=== PATIENT | female | born 1955 | race Caucasian/White ===

== ENCOUNTER → 2016-10-02 | Outpatient (CLI) | payer OTHER ==
--- NOTE | 2016-10-05 09:25 | MM ---
Reason for exam: screening (asymptomatic). Last mammogram was performed 2 years and 3 months ago. History: Patient is postmenopausal and is nulliparous. Family history of breast cancer in maternal grandmother at age 60. Took hormonal contraceptives for 25 years beginning at age 19. Took estrogen for 10 years beginning at age 47. Took progesterone for 10 years beginning at age 47. Physical Findings: A clinical breast exam by your physician is recommended on an annual basis and results should be correlated with mammographic findings. MG Screening Mammo w CAD Bilateral CC and MLO view(s) were taken. Prior study comparison: July 09, 2014, bilateral MG diagnostic mammo w CAD [facility]. July 13, 2011, [facility] DIGITAL LEFT BREAST MAMMOGRAM w/CAD. The breast tissue is heterogeneously dense. This may lower the sensitivity of mammography. There is no discrete abnormality. ASSESSMENT: Negative, BI-RAD 1 RECOMMENDATION: Routine screening mammogram of both breasts in 1 year.
== END | disposition home or self-care (01) ==
LOC: RADMAMWWP 08:06
PROVIDERS: ATTEND Obstetrics & Gynecology
DX: Z12.31 Encounter for screening mammogram for malignant neoplasm of breast (principal); Z80.3 Family history of malignant neoplasm of breast

== ENCOUNTER → 2019-02-14 | Outpatient (CLI) | payer OTHER, MEDICARE ==
--- NOTE | 2019-02-16 10:20 | MM ---
Reason for exam: screening (asymptomatic). Last mammogram was performed 2 years and 4 months ago. History: Patient is postmenopausal and is nulliparous. Family history of breast cancer in maternal grandmother at age 60. Took hormonal contraceptives for 25 years beginning at age 19. Took estrogen for 10 years beginning at age 47. Took progesterone for 10 years beginning at age 47. Physical Findings: A clinical breast exam by your physician is recommended on an annual basis and results should be correlated with mammographic findings. MG Screening Mammo w CAD Bilateral CC and MLO view(s) were taken. Prior study comparison: October 02, 2016, bilateral MG screening mammo w CAD. July 09, 2014, bilateral MG diagnostic mammo w CAD [facility]. The breast tissue is extremely dense which could obscure a lesion on mammography. No significant changes when compared with prior studies. ASSESSMENT: Benign, BI-RAD 2 RECOMMENDATION: Routine screening mammogram of both breasts in 1 year.
== END | disposition home or self-care (01) ==
LOC: RADMAMWWP 08:38
PROVIDERS: ATTEND Family Medicine
DX: Z12.31 Encounter for screening mammogram for malignant neoplasm of breast (principal)
CPT/HCPCS: 77067

== ENCOUNTER → 2019-10-09 | Outpatient (CLI) | payer MEDICARE, BC ==
--- NOTE | 2019-10-09 15:53 | BD ---
EXAMINATION TYPE: Axial Bone Density DATE OF EXAM: 10/09/2019 COMPARISON: NONE CLINICAL HISTORY: Height: 64 Weight: 138.6 FRAX RISK QUESTIONS: Alcohol (3 or more units per day): yes Family History (Parent hip fracture): no Glucocorticoids (More than 3mos): no (Ex: prednisone, prednisolone, methylprednisolone, dexamethasone, and hydrocortisone). History of Fracture in Adulthood: yes Secondary Osteoporosis: 1. Type 1 Diabetes: no 2. Hyperthyroidism: no 3. Menopause before 45: no 4. Malnutrition: no 5. Chronic liver disease: no Rheumatoid Arthritis: yes Current Tobacco Use: no RISK FACTORS HISTORY OF: Family History of Osteoporosis: no Active: yes Diet low in dairy products/other sources of calcium: no Postmenopausal woman: round age 49 Take estrogen and/or progesterone medications: yes How lon year Lost more than 2 inches in height since high school: no MEDICATIONS: hormones, hydrochlorothiazide Additional History: EXAM MEASUREMENTS: Bone mineral densitometry was performed using the [employer] System. Bone mineral density as measured about the Lumbar spine is: ----- L1-L4(G/cm2): 1.335 T Score Values are as follows: ----- L2: 0.7 ----- L3: 2.0 ----- L4: 2.1 ----- L1-L4: 1.3 Bone mineral density : baseline Bone mineral density about the R hip (g/cm2): 0.891 Bone mineral density about the L hip (g/cm2): 0.883 T Score values are as follows: -----R Neck: -1.1 -----L Neck: -1.1 -----R Total: -0.4 -----L Total: -0.3 Bone mineral density : baseline IMPRESSION: No evidence for osteoporosis or osteopenia. NOTE: T-SCORE=SD OF THE YOUNG ADULT MEAN.
== END | disposition home or self-care (01) ==
LOC: RADBDWWP 14:01
PROVIDERS: ATTEND Family Medicine
DX: Z78.0 Asymptomatic menopausal state (principal)
CPT/HCPCS: 77080

== ENCOUNTER → 2020-10-07 | Outpatient (CLI) | payer MEDICARE, BC ==
--- NOTE | 2020-10-08 14:32 | MM ---
Reason for exam: screening (asymptomatic). Last mammogram was performed 1 year and 8 months ago. History: Patient is postmenopausal and is nulliparous. Family history of breast cancer in maternal grandmother at age 60. Took hormonal contraceptives for 25 years beginning at age 19. Took estrogen for 10 years beginning at age 47. Took progesterone for 10 years beginning at age 47. Physical Findings: A clinical breast exam by your physician is recommended on an annual basis and results should be correlated with mammographic findings. MG 3D Screening Mammo W/Cad Bilateral CC and MLO view(s) were taken. Prior study comparison: February 14, 2019, bilateral MG screening mammo w CAD. October 02, 2016, bilateral MG screening mammo w CAD. The breast tissue is extremely dense which could obscure a lesion on mammography. No significant changes when compared with prior studies. ASSESSMENT: Benign, BI-RAD 2 RECOMMENDATION: Routine screening mammogram of both breasts in 1 year.
== END | disposition home or self-care (01) ==
LOC: RADMAMWWP 09:35
PROVIDERS: ATTEND Obstetrics & Gynecology
DX: Z12.31 Encounter for screening mammogram for malignant neoplasm of breast (principal); Z80.3 Family history of malignant neoplasm of breast
CPT/HCPCS: 77063; 77067

== ENCOUNTER → 2021-11-28 | Outpatient (CLI) | payer MEDICARE, BC ==
--- NOTE | 2021-12-01 11:04 | MM ---
Reason for exam: screening (asymptomatic). Last mammogram was performed 1 year and 2 months ago. History: Patient is postmenopausal and is nulliparous. Family history of breast cancer in maternal grandmother at age 60. Took hormonal contraceptives for 25 years beginning at age 19. Took estrogen for 10 years beginning at age 47. Took progesterone for 10 years beginning at age 47. Physical Findings: A clinical breast exam by your physician is recommended on an annual basis and results should be correlated with mammographic findings. MG 3D Screening Mammo W/Cad Bilateral CC and MLO view(s) were taken. Prior study comparison: October 07, 2020, bilateral MG 3d screening mammo w/cad. February 14, 2019, bilateral MG screening mammo w CAD. The breast tissue is heterogeneously dense. This may lower the sensitivity of mammography. There is no discrete abnormality. No significant changes when compared with prior studies. ASSESSMENT: Negative, BI-RAD 1 RECOMMENDATION: Routine screening mammogram of both breasts in 1 year.
== END | disposition home or self-care (01) ==
LOC: RADMAMWWP 09:14
PROVIDERS: ATTEND Obstetrics & Gynecology
DX: Z12.31 Encounter for screening mammogram for malignant neoplasm of breast (principal); Z80.3 Family history of malignant neoplasm of breast; Z78.0 Asymptomatic menopausal state
CPT/HCPCS: 77063; 77067

== ENCOUNTER → 2022-12-03 | Outpatient (CLI) | payer MEDICARE, BC ==
--- NOTE | 2022-12-03 12:10 | MM ---
Reason for Exam: Screening (asymptomatic). Last screening mammogram was performed 12 month(s) ago. Patient History: Menarche at age 12. Patient has no children. Left ovary removed at age 21. Postmenopausal. Estrogen for 10 years from age 47 until age 57. Progesterone for 10 years from age 47 until age 57. Hormonal Contraceptives for 25 years from age 19 until age 44. Maternal grandmother had breast cancer, age 60. Risk Values: Madina 5 year model risk: 1.9%. NCI Lifetime model risk: 6.2%. Prior Study Comparison: 02/14/2019 Bilateral Screening Mammogram, [facility]. 10/07/2020 Bilateral Screening Mammogram, [facility]. 11/28/2021 Bilateral Screening Mammogram, [facility]. Tissue Density: The breast tissue is heterogeneously dense. This may lower the sensitivity of mammography. Findings: Analyzed By CAD. There is no suspicious group of microcalcifications or new suspicious mass in either breast. Overall Assessment: Negative, BI-RAD 1 Management: Screening Mammogram of both breasts in 1 year. A clinical breast exam by your physician is recommended on an annual basis and results should be correlated with mammographic findings. [facility] will attempt to contact patient to return for supplemental views and ultrasound if indicated. Electronically signed and approved by: Antonio Encarnacion DO
--- NOTE | 2022-12-03 14:37 | BD ---
EXAMINATION TYPE: Axial Bone Density DATE OF EXAM: 12/03/2022 CLINICAL HISTORY: 67 years old Female. ICD-10 CODE: M89.9 DISORDER OF BONE Height: 64 Weight: 141.8 FRAX RISK QUESTIONS: Alcohol (3 or more units per day): no Family History (Parent hip fracture): no Glucocorticoids (More than 3mos): no History of Fracture in Adulthood: toe Secondary Osteoporosis: 1. Type 1 Diabetes: no 2. Hyperthyroidism: no 3. Menopause before 45: no 4. Malnutrition: no 5. Chronic liver disease: no Rheumatoid Arthritis: yes Current Tobacco Use: no RISK FACTORS HISTORY OF: Hip Fracture (Right/Left): no Spine Fracture: no History of Wrist Fracture: no Surgery to Spine/Hip(right/left)/Wrist (right/left): no Family History of Osteoporosis: no Active: no Diet low in dairy products/other sources of calcium: no Postmenopausal woman: yes Take estrogen and/or progesterone medications: testosterone How long: past 3 years Lost more than 2 inches in height since high school: no Frequent falls: no Poor Health: no Hyperparathyroidism: no Adrenal Insufficiency: no MEDICATIONS: Prednisone or other steroids: no Thyroid Medications: no Osteoporosis Medications: no Additional Medications: BP meds, multi vit., fish oil, biotin Additional History: EXAM MEASUREMENTS: Bone mineral densitometry was performed using the [employer] System. Bone mineral density as measured about the Lumbar spine is: ----- L1-L4(G/cm2): 1.263 T Score Values are as follows: ----- L1: -0.1 ----- L2: 0.2 ----- L3: 1.3 ----- L4: 1.0 ----- L1-L4: 0.7 Z Score Values are as follows: ----- L1: 1.5 ----- L2: 1.9 ----- L3: 3.0 ----- L4: 2.7 ----- L1-L4: 2.4 Bone mineral density has: Decreased -9.1% since the study of 10/09/2019 Bone mineral density about the R hip (g/cm2): 0.933 Bone mineral density about the L hip (g/cm2): 0.940 T Score values are as follows: -----R Neck: -0.3 -----L Neck: -1.1 -----R Total: -0.6 -----L Total: -0.5 Z Score values are as follows: -----R Neck: 1.3 -----L Neck: 0.5 -----R Total: 0.8 -----L Total: 0.9 Bone mineral density had Decreased -2.7% since the study of 10/09/2019 FRAX%s: The graph provided illustrates a 11.4% chance for a major osteoporotic fx and a 1.3% chance f or the hip probability for a fx in 10 years time. IMPRESSION: Osteopenia (T Score between -2.5 and -1). There is slightly increased risk of fracture and the patient may be considered for treatment. Re-Screen 2-5 years. NOTE: T-SCORE=SD OF THE YOUNG ADULT MEAN.
== END | disposition home or self-care (01) ==
LOC: RADMAMWWP 10:14
PROVIDERS: ATTEND Family Medicine
DX: Z12.31 Encounter for screening mammogram for malignant neoplasm of breast (principal); M85.89 Other specified disorders of bone density and structure, multiple sites; Z78.0 Asymptomatic menopausal state; Z80.3 Family history of malignant neoplasm of breast
CPT/HCPCS: 77063; 77067; 77080

== ENCOUNTER → 2024-12-28 | Outpatient (CLI) | payer MEDICARE, BC ==
--- NOTE | 2024-12-28 13:10 | BD ---
EXAMINATION TYPE: Axial Bone Density DATE OF EXAM: 12/28/2024 CLINICAL HISTORY: 69 years old Female. ICD-10 CODE: M82.89 Disorder of bone multiple , Additional Hi story: Height: 64 Weight: 136 FRAX RISK QUESTIONS: History of Fracture in Adulthood: yes Secondary Osteoporosis: Rheumatoid Arthritis: yes RISK FACTORS HISTORY OF: MEDICATIONS: EXAM MEASUREMENTS: Bone mineral densitometry was performed using the [employer] System. Bone mineral density as measured about the Lumbar spine is: ----- L1-L4(G/cm2): 1.254 T Score Values are as follows: ----- L1: -0.4 ----- L2: 0.4 ----- L3: 1.1 ----- L4: 1.0 ----- L1-L4: 0.6 Z Score Values are as follows: ----- L1: 1.4 ----- L2: 2.2 ----- L3: 2.9 ----- L4: 2.8 ----- L1-L4: 2.4 Bone mineral density has: Decreased -0.7% since study of: 12-03-22 Bone mineral density about the R hip (g/cm2): 0.938 Bone mineral density about the L hip (g/cm2): 0.925 T Score values are as follows: -----R Neck: -1.2 -----L Neck: -1.1 -----R Total: -0.5 -----L Total: -0.7 Z Score values are as follows: -----R Neck: 0.6 -----L Neck: 0.7 -----R Total: 1.0 -----L Total: 0.9 Bone mineral density has: Decreased -0.4% since study of: 12-03-22 FRAX%s: The graph provided illustrates a 11.6% chance for a major osteoporotic fx and a 1.6% chance f or the hips probability for fx in 10 years time. IMPRESSION: Osteopenia (T Score between -2.5 and -1). There is slightly increased risk of fracture and the patient may be considered for treatment. Re-Screen 2-5 years. NOTE: T-SCORE=SD OF THE YOUNG ADULT MEAN. [facility], , 12/28/2024 1:08 PM
== END | disposition home or self-care (01) ==
LOC: RADBDWWP 09:53
PROVIDERS: ATTEND Family Medicine
DX: M85.89 Other specified disorders of bone density and structure, multiple sites (principal)
CPT/HCPCS: 77080

== ENCOUNTER → 2024-12-28 | Outpatient (CLI) | payer MEDICARE, BC ==
--- NOTE | 2024-12-28 15:23 | MM ---
Reason for Exam: Screening (asymptomatic). Last mammogram was performed 2 year(s) and 1 month(s) ago. Patient History: Menarche at age 12. Patient has no children. Left ovary removed at age 21. Postmenopausal. Estrogen for 10 years from age 47 until age 57. Progesterone for 10 years from age 47 until age 57. Hormonal Contraceptives for 25 years from age 19 until age 44. Maternal grandmother had breast cancer, age 60. Risk Values: Madina 5 year model risk: 1.9%. NCI Lifetime model risk: 5.6%. Prior Study Comparison: 10/07/2020 Bilateral Screening Mammogram, [facility]. 11/28/2021 Bilateral Screening Mammogram, [facility]. 12/03/2022 Bilateral MG 3D screening mammo w/cad, [facility]. Tissue Density: The breasts are heterogeneously dense, which may obscure small masses. Findings: Analyzed By CAD. Areas of asymmetric density are unchanged. There is no suspicious group of microcalcifications or new suspicious mass in either breast. Overall Assessment: Benign, BI-RAD 2 Management: Screening Mammogram of both breasts in 1 year. Patient should continue monthly self-breast exams. A clinical breast exam by your physician is recommended on an annual basis. This exam should not preclude additional follow-up of suspicious palpable abnormalities. Note on Madina scores and lifetime risk: 1. A Madina score greater than 3% is considered moderate risk. If this is the case, consider specialist referral to assess eligibility for a risk reducing agent. 2. If overall lifetime risk for the development of breast cancer is 20% or higher, the patient may qualify for future screening with alternating mammogram and breast MRI. [facility], , 12/28/2024 3:20 PM. Electronically signed and approved by: Sudeep Palafox M.D. Radiologist
== END | disposition home or self-care (01) ==
LOC: RADMAMWWP 09:51
PROVIDERS: ATTEND Obstetrics & Gynecology
DX: Z12.31 Encounter for screening mammogram for malignant neoplasm of breast (principal); R92.333 Mammographic heterogeneous density, bilateral breasts; Z78.0 Asymptomatic menopausal state; Z92.0 Personal history of contraception; Z80.3 Family history of malignant neoplasm of breast
CPT/HCPCS: 77063; 77067